=== PATIENT | male | born 1995 | race Caucasian/White ===

== ENCOUNTER → 2018-08-12 17:56 | Outpatient (CLI) | payer BC, SELFPAY ==
--- NOTE | 2018-08-12 18:04 | MRI_ITS ---
STUDY: MRI RIGHT SHOULDER REASON FOR EXAM: Pain, clicking and catching for 3 weeks, hockey injury. TECHNIQUE: Standardized fat and water weighted pulse sequences were obtained in all 3 orthogonal planes. COMPARISON: None. FINDINGS: Normal supraspinatus tendon. Normal infraspinatus tendon. Normal subscapularis tendon. Normal teres minor tendon. Normal supraspinatus muscle. Normal infraspinatus muscle. Normal subscapularis muscle. Normal teres minor muscle. There is a glenohumeral joint effusion with fluid extending into the bicipital tendon sheath. Normal humeral head and visualized proximal humerus. Normal biceps labral complex. Normal intracapsular long biceps tendon. There is a tear of the posterior labrum (proton-density axial images 10-16) with a fracture of the posterior glenoid (T2 sagittal image 15) and periosteal edema at the posterior aspect of the scapula. Normal acromioclavicular articulation. There is a Type II morphology (curved), with an anterior downsloping orientation. There is no subacromial-subdeltoid bursal fluid. Normal visualized coracohumeral and coracoacromial ligaments. Normal deltoid muscle. Normal trapezius muscle. MRI/Upper Ext Joint Only(Routine) IMPRESSION: Posterior labral tear/fracture of the posterior glenoid. Glenohumeral joint effusion. Electronically Signed: Christopher Bernal MD at 8:36 EST Tel , Service support ,
== END ==
PROVIDERS: Family Provider Family Medicine; PCP Family Medicine; Referring Provider Family Medicine; Visit Provider Family Medicine
DX: M25.511 Pain in right shoulder (principal)
CPT/HCPCS: 73221